=== PATIENT | female | born 1945 | race Two or more races ===

== ENCOUNTER → 2017-11-14 | Outpatient (CLI) | payer MEDICARE, MEDICAID | END | disposition home or self-care (01) | LOC: RADPV 08:16 | PROVIDERS: ATTEND Internal Medicine Cardiovascular Disease | DX: I08.0 Rheumatic disorders of both mitral and aortic valves (principal); I10 Essential (primary) hypertension | CPT/HCPCS: 93306 ==

== ENCOUNTER 2019-05-31 19:55 | Inpatient (IN) | payer MEDICAID, MEDICARE ==
[~2019-05-31] VITALS: Ht 127 cm; Wt 73.3 kg
[2019-05-31 20:37] LABS: BASOPHILS % (AUTO) 0.3 % (0.0-2.0); EOSINOPHILS % (AUTO) 2.1 % (1.0-6.0); HEMATOCRIT 42.7 % (36-46); HEMOGLOBIN 14.2 g/dL (12.0-16.0); LYMPHOCYTES # (AUTO) 3.1 K/uL (1.0-4.8); LYMPHOCYTES % (AUTO) 42.7 % (22.0-44.0); MEAN CORPUSCULAR HEMOGLOBIN 30.4 pg (26.0-34.0); MEAN CORPUSCULAR HGB CONC 33.2 G/dL (31.0-37.0); MEAN CORPUSCULAR VOLUME 92 fL (80-100); MONOCYTES # (AUTO) 0.4 K/uL (0.1-1.0); NEUTROPHILS # (AUTO) 3.6 K/uL (1.8-7.7); NEUTROPHILS % (AUTO) 48.9 % (40.0-70.0); PLATELET COUNT (AUTO) 275 K/uL (150-450); RED BLOOD CELL COUNT(AUTO) 4.67 MIL/uL (4.00-5.20); RED CELL DISTRIBUTION WIDTH 15.1 % (11.5-14.5)
[2019-05-31 20:50] LABS: CALCIUM, TOTAL 9.5 mg/dL (8.8-10.5); CREATININE 1.02 mg/dL (0.60-1.30); POTASSIUM 4.5 mmol/L (3.5-5.1)
[2019-05-31 20:56] LABS: ALBUMIN 3.9 g/dL (3.4-5.0); BILIRUBIN,TOTAL 0.4 mg/dL (0.1-1.0); TOTAL PROTEIN, SERUM 7.2 g/dL (6.4-8.2)
[2019-05-31] MEDS ORDERED: ACETAMINOPHEN 325 MG TABLET PO PRN (22:00)
[2019-05-31] MEDS ORDERED: ONDANSETRON HCL 4 MG/2 ML VIAL IVP PRN (22:00)
[2019-05-31] MEDS ORDERED: 0.9% SODIUM CHLORIDE 10 ML SYRINGE IVP PRN (22:00)
[2019-06-01] MEDS ORDERED: ONDANSETRON HCL 4 MG/2 ML VIAL IVP PRN (01:45)
[2019-06-01] MEDS ORDERED: MORPHINE SULFATE 2 MG/ML SYRINGE IVP PRN ×2 (01:45→13:45)
[2019-06-01] MEDS ORDERED: NITROGLYCERIN 2% (1 GM=INCH) PACKET TP PRN (01:45)
[2019-06-01] MEDS ORDERED: ZOLPIDEM TARTRATE 10 MG TABLET PO PRN (01:45)
[2019-06-01] MEDS ORDERED: NITROGLYCERIN 0.4 MG SUBLINGUAL TABLET #25 SL PRN (01:45)
[2019-06-01] MEDS ORDERED: LORazepam 1 MG TABLET PO PRN ×2 (01:45→13:45)
[2019-06-01 06:58] VITALS: BP 141/67
[2019-06-01] MEDS ORDERED: FAMOTIDINE 10 MG/ML 2 ML VIAL IVP SCH (09:00)
[2019-06-01] MEDS ORDERED: ASPIRIN 325 MG TABLET PO SCH (09:00)
[2019-06-01] MEDS: ASPIRIN 81 MG CHEWABLE TABLET PO SCH (10:15)
[2019-06-01] MEDS: PANTOPRAZOLE SODIUM 40 MG DR TABLET PO SCH (10:15)
[2019-06-01 10:56] LABS: ANION GAP 8 mmol/L (8-16); CALCIUM, TOTAL 8.7 mg/dL (8.8-10.5); CARBON DIOXIDE 27 mmol/L (22-29); CHLORIDE 105 mmol/L (98-107); CREATININE 0.88 mg/dL (0.60-1.30); GLUCOSE,RANDOM 167 mg/dL (70-110); SODIUM SERUM 140 mmol/L (136-145); UREA NITROGEN, BLOOD 14 mg/dL (7-18)
[2019-06-01 10:57] LABS: GLOMERULAR FILTR. RATE CALC > 60 mL/min (>60)
[2019-06-01 12:57] VITALS: BP 137/64
[2019-06-01 15:43] VITALS: BP 123/77
[2019-06-01] MEDS: ACETAMINOPHEN 325 MG TABLET PO PRN ×2 (15:58→20:28)
[2019-06-01 19:40] VITALS: BP 127/62
[2019-06-02 00:09] VITALS: BP 117/57
[2019-06-02 05:12] VITALS: BP 111/69
[2019-06-02 07:33] VITALS: BP 123/78
[2019-06-02] MEDS: PANTOPRAZOLE SODIUM 40 MG DR TABLET PO SCH (08:50)
[2019-06-02] MEDS: ASPIRIN 81 MG CHEWABLE TABLET PO SCH (08:50)
[2019-06-02] MEDS ORDERED: METF-446 PO (11:01)
[2019-06-02] MEDS ORDERED: ASPI81TA87 PO (11:02)
== END 2019-06-02 12:20 | disposition home or self-care (01) | DRG 313 ==
LOC: EMS 19:57 → 5S 06-01 05:21
PROVIDERS: ADMIT Internal Medicine; ATTEND Internal Medicine
DX: R07.89 Other chest pain (principal); I10 Essential (primary) hypertension; M19.90 Unspecified osteoarthritis, unspecified site; E11.65 Type 2 diabetes mellitus with hyperglycemia; E78.5 Hyperlipidemia, unspecified; I25.10 Atherosclerotic heart disease of native coronary artery without angina pectoris; Z88.0 Allergy status to penicillin
CPT/HCPCS: 83036; 93005; 93306; 96374; 96375; G0378; J2270; J3490

== ENCOUNTER 2022-03-23 12:17 | Emergency (ER) | payer OTHER ==
[~2022-03-23] VITALS: Ht 142.2 cm; Wt 64.1 kg
[~2022-03-23 12:17] MED LIST: ASPI81TA87 PO; METF-446 PO
[2022-03-23] MEDS ORDERED: DICLOFENAC SODIUM 1% 100 GM GEL [4GM] TP ONE (15:30)
[2022-03-23 15:35] VITALS: BP 132/70
== END 2022-03-23 15:49 | disposition home or self-care (01) ==
LOC: EMS 12:22
DX: R20.2 Paresthesia of skin (principal); M19.90 Unspecified osteoarthritis, unspecified site; I10 Essential (primary) hypertension; I51.7 Cardiomegaly
CPT/HCPCS: 93971; 99284; Z7502

== ENCOUNTER 2022-11-01 18:37 | Emergency (ER) | payer OTHER ==
[~2022-11-01] VITALS: Ht 144.8 cm; Wt 70.0 kg
[~2022-11-01 18:37] MED LIST changes: +AMLO-258 PO; +ATOR20TA65 PO; +LEVO-72 PO; -METF-446 PO; +MIRT-89 PO
[2022-11-01 18:42] VITALS: TEMP 99.2
[2022-11-01 20:17] LABS: BASOPHILS % (AUTO) 0.4 % (0.0-2.0); EOSINOPHILS % (AUTO) 1.1 % (1.0-6.0); LYMPHOCYTES # (AUTO) 2.7 K/uL (1.0-4.8); MEAN CORPUSCULAR HEMOGLOBIN 30.2 pg (26.0-34.0); MEAN CORPUSCULAR HGB CONC 33.4 G/dL (31.0-37.0); MEAN CORPUSCULAR VOLUME 91 fL (80-100); MONOCYTES # (AUTO) 0.6 K/uL (0.1-1.0); MONOCYTES % (AUTO) 5.7 % (2.0-9.0); NEUTROPHILS # (AUTO) 7.6 K/uL (1.8-7.7); NEUTROPHILS % (AUTO) 68.8 % (40.0-70.0); PLATELET COUNT (AUTO) 257 K/uL (150-450); RED BLOOD CELL COUNT(AUTO) 4.31 MIL/uL (4.00-5.20)
[2022-11-01 20:29] LABS: ANION GAP 12 mmol/L (8-16); CARBON DIOXIDE 27 mmol/L (22-29); CHLORIDE 102 mmol/L (98-107); CREATININE 0.75 mg/dL (0.60-1.30); GLOMERULAR FILTR. RATE CALC > 60 mL/min (>60); GLUCOSE,RANDOM 130 mg/dL (70-110); POTASSIUM 4.2 mmol/L (3.5-5.1); SODIUM SERUM 141 mmol/L (136-145)
[2022-11-01 20:32] LABS: ALANINE AMINOTRANSFERASE 29 U/L (12-78); ALKALINE PHOSPHATASE 61 U/L (46-116); ASPARTATE AMINOTRANSFERASE 20 U/L (15-37); BILIRUBIN,TOTAL 0.4 mg/dL (0.1-1.0); LIPASE 155 U/L (73-393); TOTAL PROTEIN, SERUM 7.8 g/dL (6.4-8.2)
[2022-11-01 21:40] LABS: APPEARANCE,URINE CLEAR (CLEAR); BILIRUBIN,URINE NEGATIVE (NEGATIVE); GLUCOSE, URINE (UA) NEGATIVE (NEGATIVE); KETONES,URINE NEGATIVE (NEGATIVE); LEUKOCYTE ESTERASE ,URINE NEGATIVE (NEGATIVE); NITRATE,URINE NEGATIVE (NEGATIVE); OCCULT BLOOD,URINE NEGATIVE (NEGATIVE); PROTEIN,URINE NEGATIVE (NEGATIVE); SPECIFIC GRAVITIY, URINE 1.005 (1.003-1.030); UROBILINOGEN,URINE <=1.0 mg/dL (<=1.0)
[2022-11-01] MEDS ORDERED: SODIUM PHOSPHATE,MONO-DIBASIC 133 ML ENEMA PR ONE (22:30)
[2022-11-01] MEDS ORDERED: POLY119P3 PO (22:44)
[2022-11-01 22:45] VITALS: BP 146/71; PULSE 71; RESP 17
== END 2022-11-01 23:16 | disposition home or self-care (01) ==
LOC: EMS 18:37
DX: K59.00 Constipation, unspecified (principal); K62.5 Hemorrhage of anus and rectum; M19.90 Unspecified osteoarthritis, unspecified site; F03.90 Unspecified dementia, unspecified severity, without behavioral disturbance, psychotic disturbance, mood disturbance, and anxiety; E11.9 Type 2 diabetes mellitus without complications; E78.00 Pure hypercholesterolemia, unspecified; I10 Essential (primary) hypertension; I51.7 Cardiomegaly; E66.01 Morbid (severe) obesity due to excess calories; Z90.49 Acquired absence of other specified parts of digestive tract
CPT/HCPCS: 74022; 74176; 80053; 81003; 83690; 84484; 85025; 93005; 99285

== ENCOUNTER 2022-12-27 14:57 | Emergency (ER) | payer OTHER ==
[~2022-12-27] VITALS: Ht 147.3 cm; Wt 63.6 kg
[~2022-12-27 14:57] MED LIST changes: +POLY119P3 PO
[2022-12-27 15:04] VITALS: TEMP 98.6
[2022-12-27] MEDS ORDERED: METF-1211 PO (15:04)
[2022-12-27] MEDS ORDERED: [UNRECOGNIZED DRUG - CODE] PO (15:08)
[2022-12-27] MEDS ORDERED: UNKNOWN ABX PO (15:08)
[2022-12-27 18:00] VITALS: BP 129/54; PULSE 89; RESP 17
[2022-12-27] MEDS ORDERED: DOXYLAMINE SUCCINATE 25 MG TABLET PO ONE (18:00)
[2022-12-27] MEDS ORDERED: PERTUSS(ACELL),DIPH,TET VAC/PF 0.5 ML SYRINGE IM. ONE (18:00)
[2022-12-27] MEDS ORDERED: DOXY75TA14 PO (18:33)
== END 2022-12-27 18:43 | disposition home or self-care (01) ==
LOC: EMS 14:58
DX: S61.451A Open bite of right hand, initial encounter (principal); L03.818 Cellulitis of other sites; L03.113 Cellulitis of right upper limb; T14.8XXA Other injury of unspecified body region, initial encounter; M19.90 Unspecified osteoarthritis, unspecified site; I10 Essential (primary) hypertension; E11.9 Type 2 diabetes mellitus without complications; E78.00 Pure hypercholesterolemia, unspecified; E66.01 Morbid (severe) obesity due to excess calories; Z88.0 Allergy status to penicillin; Z90.711 Acquired absence of uterus with remaining cervical stump; Z98.51 Tubal ligation status; Z04.9 Encounter for examination and observation for unspecified reason; W54.0XXA Bitten by dog, initial encounter; Y93.89 Activity, other specified; Y92.89 Other specified places as the place of occurrence of the external cause; Y99.8 Other external cause status
CPT/HCPCS: 90471; 90715; 99283